=== PATIENT | female | born 1960 ===

== ENCOUNTER → 2022-11-14 | Outpatient (REF) | payer SELFPAY | LOC: M WUC 19:26 | PROVIDERS: ATTEND Student in an Organized Health Care Education/Training Program | DX: R30.0 Dysuria (principal) ==

== ENCOUNTER → 2023-01-01 | Outpatient (REF) | payer SELFPAY | LOC: M WUC 17:54 | PROVIDERS: ATTEND Registered Nurse | DX: N39.0 Urinary tract infection, site not specified (principal) ==